=== PATIENT | female | born 1990 | race Caucasian/White ===

== ENCOUNTER 2016-12-29 01:17 | Emergency (ER) | payer BC ==
[~2016-12-29] VITALS: Ht 172.7 cm; Wt 68.0 kg
[2016-12-29 01:29] VITALS: Ht 172.7 cm; Wt 68.0 kg
[2016-12-29] MEDS ORDERED: ONDANSETRON 4 MG INJ IV STA (01:42)
[2016-12-29] MEDS ORDERED: SOD CHLORIDE 0.9% 1,000 ML IV STA (01:42)
[2016-12-29] MEDS ORDERED: FAMOTIDINE 20 MG INJ IV STA (01:42)
[2016-12-29 02:08] LABS: ADD SCAN DIFF NO
[2016-12-29 02:12] LABS: BASOPHILS % 0.5 % (0.0-2.0); EOSINOPHILS % 0.4 % (0.0-7.0); HEMATOCRIT 38.7 % (37.0-47.0); HEMOGLOBIN 12.5 g/dl (12.0-16.0); LYMPHOCYTES # 1.3 10^3/ul (0.8-2.9); LYMPHOCYTES % 14.9 % (15.0-51.0); MEAN CORPUSCULAR HEMOGLOBIN 27.9 pg (29.0-33.0); MEAN CORPUSCULAR HGB CONC 32.3 g/dl (32.0-37.0); MEAN CORPUSCULAR VOLUME 86.4 fl (82.0-101.0); MEAN PLATELET VOLUME 12.2 fl (7.4-10.4); MONOCYTE # 0.6 10^3/ul (0.3-0.9); MONOCYTES % 6.9 % (0.0-11.0); NEUTROPHIL # 6.6 10^3/ul (1.6-7.5); NEUTROPHILS % 77.1 % (39.0-77.0); PLATELET COUNT 146 10^3/UL (140-415); RED BLOOD COUNT 4.48 10^6/ul (4.20-5.40); RED CELL DISTRIBUTION WIDTH 15.5 % (11.5-14.5); WHITE BLOOD COUNT 8.5 10^3/ul (4.8-10.8)
[2016-12-29] MEDS ORDERED: KETOROLAC 15 MG INJ IV STA (02:16)
[2016-12-29 02:34] LABS: ALBUMIN 5.1 g/dl (3.3-4.9); ALBUMIN/GLOBULIN RATIO 1.96; BILIRUBIN,INDIRECT 1.2 mg/dl (0-1.1); BILIRUBIN,TOTAL 1.2 mg/dl (0.2-1.3); CALCIUM 9.7 mg/dl (8.4-10.2); CREATININE 1.11 mg/dl (0.44-1.00); POTASSIUM 3.6 mmol/L (3.5-5.1); TOTAL PROTEIN 7.7 g/dl (6.1-8.1)
[2016-12-29 02:39] LABS: ADD UMIC YES; URINE BILIRUBIN (Dip) NEGATIVE (NEGATIVE); URINE BLOOD (Dip) 1+ (NEGATIVE); URINE COLOR LT. YELLOW (YELLOW); URINE GLUCOSE (Dip) NEGATIVE (NEGATIVE); URINE KETONES (Dip) 40 (NEGATIVE); URINE LEUKOCYTE ESTERASE (Dip) NEGATIVE (NEGATIVE); URINE NITRITE (Dip) NEGATIVE (NEGATIVE); URINE TOTAL PROTEIN (Dip) 1+ (NEGATIVE); URINE UROBILINOGEN (Dip) 0.2 E.U./dL (0.1-1.0)
[2016-12-29 02:56] LABS: BACTERIA,URINE FEW; SQUAMOUS EPITHELIAL CELL,UR MODERATE
[2016-12-29] MEDS ORDERED: IBUP200C PO (03:08)
[2016-12-29] MEDS ORDERED: ELTR50TA PO (03:08)
--- NOTE | 2016-12-29 03:29 | RADRPT ---
PROCEDURE: US pelvis complete and transvaginal CLINICAL INDICATION: Pelvic pain TECHNIQUE: Bardales scale and color Doppler imaging of the pelvis was performed. Endovaginal scanning was performed for more detailed evaluation of the endometrium. The images were reviewed on a PACS workstation. COMPARISON: None. FINDINGS: The uterus measures 8 x 3 x 4.6 centimeters. The right ovary measures 2.6 x 1.5 x 1.6 centimeters a nd the left ovary measures 1.4 x 1.8 x 4 centimeters. The endometrial stripe measures 2 millimeters in thickness and is unremarkable in appearance. No fibroids are seen. The ovaries are unremarkable in appearance. No free fluid is seen. Arterial pulsed wave and color Doppler flow of both ovaries wa s documented. IMPRESSION: No definite acute abnormality. RPTAT: [facility] Physician Isiah Date Time Electronically viewed and signed by Physician Isiah on 12/29/2016 03:28 /
[2016-12-29] MEDS ORDERED: IBUP800T25 PO (03:36)
--- NOTE | 2016-12-29 03:36 | ERD ---
ER Documentation Chief Complaint Date/Time DATE: 12/29/16 TIME: 03:34 Chief Complaint LLQ pain that has progressively worse tonight HPI This is a 25-year-old female who presents to the emergency room after a code green was called due to the fact that she was having pain in her abdomen. The patient states that she has had pain in the lower abdomen on the left side for 1 hour which is gotten progressively worse. She denies any radiation of the pain. And states that she was feeling weak and came to the ER for evaluation. Patient denies any vaginal discharge or vaginal bleeding at this time and does state that she is on oral contraceptives. No aggravating or relieving factors at this time ROS All systems reviewed and are negative except as per history of present illness. Medications Home Meds Reported Medications Ibuprofen* (Ibuprofen*) 200 Mg Capsule, 200 MG PO QID Y for PAIN, CAP 12/29/16 Eltrombopag Olamine (Promacta) 50 Mg Tablet, 50 MG PO DAILY, TAB 12/29/16 Allergies Allergies: Coded Allergies: No Known Allergy (Unverified , 12/29/16) PMhx/Soc Medical and Surgical Hx: pt denies Surgical Hx Hx Miscellaneous Medical Probl: Yes (ITP) Hx Alcohol Use: Yes (socially) Hx Substance Use: No Hx Tobacco Use: No Smoking Status: Never smoker Physical Exam Vitals Vital Signs Date Time Temp Pulse Resp B/P Pulse Ox O2 Delivery O2 Flow Rate FiO2 12/29/16 01:29 98.3 58 18 116/77 100 Physical Exam INITIAL VITAL SIGNS: Reviewed by me GENERAL: The patient is well developed and appropriate for usual state of health in no apparent distress HEENT: Pupils equal, round, and reactive to light. EOMI. There is no scleral icterus. NECK: C-spine is soft and supple, there is no meningismus. There is no cervical lymphadenopathy. LUNGS: Clear to auscultation bilaterally. There are no rales, wheezes or rhonchi. HEART: Regular rate and rhythm, no murmurs, clicks, rubs or gallops. ABDOMEN: Soft, non-tender, non-distended. There are bowel sounds in all four quadrants. No rebound or guarding. EXTREMITIES: There is no peripheral cyanosis or edema. No focal swelling or erythema. NEUROLOGICAL: The patient moves all four extremities with 5/5 strength. Cranial nerves II - XII are intact. Normal gait. Alert and oriented SKIN: There is no apparent rash or petechiae. HEME/LYMPHATIC: There is no evidence of excessive bruising or lymphedema. PSYCHIATRIC: The patient does not appear anxious or depressed. Result Diagram: 12/29/16 0153 12/29/16 0153 Results 24 hrs Laboratory Tests Test 12/29/16 01:53 12/29/16 02:09 White Blood Count 8.510^3/ul Red Blood Count 4.4810^6/ul Hemoglobin 12.5g/dl Hematocrit 38.7% Mean Corpuscular Volume 86.4fl Mean Corpuscular Hemoglobin 27.9pg Mean Corpuscular Hemoglobin Concent 32.3g/dl Red Cell Distribution Width 15.5% Platelet Count 47248^3/UL Mean Platelet Volume 12.2fl Neutrophils % 77.1% Lymphocytes % 14.9% Monocytes % 6.9% Eosinophils % 0.4% Basophils % 0.5% Nucleated Red Blood Cells % 0.0/100WBC Neutrophils # 6.610^3/ul Lymphocytes # 1.310^3/ul Monocytes # 0.610^3/ul Eosinophils # 0.010^3/ul Basophils # 0.010^3/ul Nucleated Red Blood Cells # 0.010^3/ul Sodium Level 142mmol/L Potassium Level 3.6mmol/L Chloride Level 109mmol/L Carbon Dioxide Level 22mmol/L Anion Gap 15 Blood Urea Nitrogen 16mg/dl Creatinine 1.11mg/dl Glucose Level 103mg/dl Calcium Level 9.7mg/dl Total Bilirubin 1.2mg/dl Direct Bilirubin 0.00mg/dl Indirect Bilirubin 1.2mg/dl Aspartate Amino Transf (AST/SGOT) 20IU/L Alanine Aminotransferase (ALT/SGPT) 29IU/L Alkaline Phosphatase 64IU/L Total Protein 7.7g/dl Albumin 5.1g/dl Globulin 2.60g/dl Albumin/Globulin Ratio 1.96 Lipase 101U/L Serum HCG, Qualitative NEGATIVE Urine Color LT. YELLOW Urine Clarity SL HAZY Urine pH 5.5 Urine Specific Minier >=1.030 Urine Ketones 40 Urine Nitrite NEGATIVE Urine Bilirubin NEGATIVE Urine Urobilinogen 0.2 E.U./dL Urine Leukocyte Esterase NEGATIVE Urine Microscopic RBC 2-5/HPF Urine Microscopic WBC 0-2/HPF Urine Squamous Epithelial Cells MODERATE Urine Bacteria FEW Urine Hemoglobin 1+ Urine Glucose NEGATIVE% Urine Total Protein 1+ Current Medications Medications (Trade) Dose Ordered Sig/Shamika Route PRN Reason Start Time Stop Time Status Last Admin Dose Admin Sodium Chloride (NS) 1,000 ml @ 1,000 mls/hr Q1H STAT IV 12/29/16 01:42 12/29/16 02:41 DC 12/29/16 02:09 Ondansetron HCl (Zofran Inj) 4 mg ONCE STAT IV 12/29/16 01:42 12/29/16 01:44 DC 12/29/16 02:09 Famotidine (Pepcid Iv) 20 mg ONCE STAT IV 12/29/16 01:42 12/29/16 01:44 DC 12/29/16 02:09 Ketorolac Tromethamine (Toradol) 15 mg ONCE STAT IV 12/29/16 02:16 12/29/16 02:17 DC 12/29/16 02:35 Procedures/MDM Ultrasound transvaginal: No definite acute abnormality. This 25-year-old female presents to the ER for evaluation of abdominal pain. When I evaluated her she was complaining of tenderness in the left lower quadrant however I cannot elicit any on my examination. She did not have any signs of an acute abdomen. Lab work was obtained which shows a mild elevation in creatinine. Urinalysis shows ketones in the urine. The patient did have a transvaginal ultrasound which does not show any acute abnormality. She was given 30 mg of IV Toradol and upon my reevaluation the patient states that her pain is completely resolved and she states she is feeling much better at this time. This patient will be discharged with a prescription for Motrin for abdominal pain. Differential diagnoses entertained was broad with potential high acuity. Patient has been evaluated for appendicitis, cholecystitis, and other high risk medical and surgical causes of abdominal pain. Ultimately the patient's evaluation is nondiagnostic. Based on the patient's lack of risk factors, as well as the patient's clinical, laboratory, and imaging data, the patient appears to be low risk for these high risk causes of abdominal pain. Departure Diagnosis: Primary Impression: Abdominal pain Additional Impression: Ketonuria Condition: Stable TALHA RUIZ DO Dec 29, 2016 03:36
[2016-12-29 04:04] VITALS: BP 118/62; PULSE 60; RESP 16; TEMP 98.3
== END 2016-12-29 04:05 | disposition home or self-care (01) ==
LOC: E/R 01:17
DX: R10.32 Left lower quadrant pain (principal); R82.4 Acetonuria; R10.2 Pelvic and perineal pain
CPT/HCPCS: 76830; 76856; 80053; 81001; 83690; 84703; 85025; 96374; 96375; 99285; J1885; J2405; J7030